=== PATIENT | female | born 1980 | race Caucasian/White ===

== ENCOUNTER → 2020-04-23 16:22 | Outpatient (CLI) | payer BC, SELFPAY ==
[2020-04-23 12:58] VITALS: BMI 30.7
== END ==
PROVIDERS: Visit Provider Nurse Practitioner Women's Health
DX: N76.1 Subacute and chronic vaginitis (principal)
CPT/HCPCS: 87070; 87205

== ENCOUNTER → 2020-06-15 08:13 | Outpatient (CLI) | payer BC, SELFPAY ==
[2020-04-23 12:58] VITALS: BMI 30.7
--- NOTE | 2020-06-15 08:22 | BI_ITS ---
MAMMOGRAPHY - BILATERAL SCREENING REASON FOR EXAM: Female, 40 years old. Routine annual screening examination. PERTINENT HISTORY: Non-contributory. TECHNIQUE: Digital bilateral breast darwin (3D mammographic acquisition) in the CC and MLO projections. 2-D mediolateral oblique (MLO) and craniocaudad (CC) views of both breasts were obtained. CAD: Full Field Digital Mammography with Computer Added Detection was performed. COMPARISON: Comparison is made with prior outside examination dated 05/02/2019. FINDINGS: Breast Composition: The breasts are heterogeneously dense, which may obscure small masses. There are no dominant masses or suspicious calcifications. Stable benign-appearing bilateral axillary. No other significant abnormalities are identified. There has been no significant change since the prior study. BI/SCRN MAMM (CAD)W/DARWIN BILAT IMPRESSION: Stable bilateral screening mammogram. Yearly follow-up mammogram recommended. (A) ASSESSMENT CATEGORY: BIRADS Category 2: Benign. A letter regarding these results will be sent to the patient by the facility within 30 days. Approximately 10% of breast cancers are not detected by mammography. A normal mammogram should not delay biopsy of a clinically suspicious abnormality. [id number] Electronically Signed: Hi Navarro MD at 14:12 EDT , Service support ,
== END ==
PROVIDERS: Referring Provider Nurse Practitioner Women's Health; Visit Provider Nurse Practitioner Women's Health
DX: Z12.31 Encounter for screening mammogram for malignant neoplasm of breast (principal)
CPT/HCPCS: 77063; 77067

== ENCOUNTER → 2021-01-16 12:19 | Outpatient (CLI) | payer BC, SELFPAY ==
[2021-01-18 15:59] LABS: HPV APTIMA, High Risk Negative (Negative)
== END ==
PROVIDERS: Referring Provider Nurse Practitioner Women's Health; Visit Provider Nurse Practitioner Women's Health
DX: N76.0 Acute vaginitis (principal)
CPT/HCPCS: 87070; 87205; 87624; 88175; G0145

== ENCOUNTER 2021-04-17 09:24 | Outpatient (CLI) | payer BC, SELFPAY ==
[2021-04-17 12:10] LABS: Absolute Lymphocyte Count 1.65 X10^3/uL (0.83-4.51); Absolute Neutrophil Count 5.2 X10^3/uL (2.0-7.7); Basophil# 0.04 X10^3/uL; Basophil% 0.5 % (0-1); Eosinophil# 0.13 X10^3/uL; Eosinophils% 1.7 % (0-5); Hematocrit 43.6 % (37-47); Hemoglobin 14.5 g/dL (12.0-15.0); Lymphocyte # 1.65 X10^3/ul (0.83-4.51); Lymphocyte % 21.5 % (19-41); Mean Corp Hgb Conc 33.3 g/dL (32-36); Mean Corpuscular Hgb 29.2 pg (27.0-32.0); Mean Corpuscular Volume 87.9 fL (81-99); Mean Platelet Vol. 12.5 fl (6.2-12.0); Monocyte# 0.63 X10^3/uL; Monocyte% 8.2 % (0-10); NRBC Flagged by Analyzer 0 % (0-5); Neutrophil # 5.18 X10^3/uL (2.7-7.7); Neutrophil % 67.7 % (47-70); Platelet Count 286 K/mm3 (150-450); RBC Distribution Width SD 42.1 fl (35.1-43.9); Red Blood Count 4.96 M/mm3 (4.2-5.4); White Blood Count 7.7 K/mm3 (4.4-11.0)
[2021-04-17 12:28] LABS: ALB/GLOB Ratio 1.1 RATIO (0.9-2.4); AST(SGOT) 15 U/L (15-37); Alanine Aminotransfer ALT/SGPT 35 U/L (13-56); Alkaline Phosphatase 49 U/L (45-117); Anion Gap 7 (5-15); BUN 15 mg/dL (7-18); Calcium,Total 9.2 mg/dL (8.5-10.1); Chloride 107 mmol/L (98-107); Cholesterol 210 mg/dL (200); Creatinine, Serum 0.88 mg/dL (0.55-1.02); EST Glomerular Filtration Rate 75 mL/min (>60); Est Glom Filt Rate - Afr Amer 91 mL/min (>60); Globulin 3.8 g/dL (2.2-4.2); Glucose 92 mg/dL (74-106); High Density Lipoprotein 45 mg/dL; Potassium 4.5 mmol/L (3.5-5.1); Protein, Total 7.8 g/dL (6.4-8.2); Sodium Level 139 mmol/L (136-145); Triglycerides 163 mg/dL; Very Low Density Lipoprotein 33 mg/dL (5-40)
== END 2021-04-17 23:59 | disposition short-term general hospital (02) ==
LOC: BIMLAB 09:24
PROVIDERS: PCP Internal Medicine; Referring Provider Internal Medicine; Visit Provider Internal Medicine
DX: Z00.00 Encounter for general adult medical examination without abnormal findings (principal)
CPT/HCPCS: 36415; 80053; 80061; 85025

== ENCOUNTER 2021-04-19 10:52 | Outpatient (CLI) | payer BC, SELFPAY ==
[2021-04-29 19:06] LABS: Angiotensin Convert Enzyme 23 U/L (14-82); QNTFERON TB Mitogen Value > 10.00 IU/mL (.); QNTFERON TB Nil Value 0 IU/mL (.); QNTFERON TB1+ Ag Value 0 IU/mL (.); QNTFERON TB2+ Ag Value 0 IU/mL (.)
[2021-04-29 20:24] LABS: HLA B27 Positive (.); QNTIFERON TB Positive Criteria Negative (Negative); Treponema palladium Ab (FTA) Non Reactive (Non Reactive)
== END 2021-04-19 23:59 | disposition short-term general hospital (02) ==
LOC: BIMLAB 10:53
PROVIDERS: PCP Internal Medicine; Referring Provider Ophthalmology; Visit Provider Ophthalmology
DX: H20.012 Primary iridocyclitis, left eye (principal)
CPT/HCPCS: 36415; 81374; 82164; 86480; 86780

== ENCOUNTER → 2021-08-02 | Outpatient (CLI) | payer BC, SELFPAY ==
--- NOTE | 2021-08-02 10:53 | BI_ITS ---
MAMMOGRAPHY - BILATERAL SCREENING REASON FOR EXAM: Female, 41 years old. Routine annual screening examination. PERTINENT HISTORY: Non-contributory. TECHNIQUE: Digital bilateral breast darwin (3D mammographic acquisition) in the CC and MLO projections. 2-D mediolateral oblique (MLO) and craniocaudad (CC) views of both breasts were obtained. CAD: Full Field Digital Mammography with Computer Added Detection was performed. COMPARISON: Comparison is made with prior study 06/15/2020. FINDINGS: Breast Composition: The breasts are heterogeneously dense, which may obscure small masses. There are no dominant masses or suspicious calcifications. Stable small benign-appearing lateral axillary lymph nodes. No other significant abnormalities are identified. There has been no significant change since the prior study. BI/SCRN MAMM (CAD)W/DARWIN BILAT IMPRESSION: Stable bilateral screening mammogram. Yearly follow-up mammogram recommended. (A) ASSESSMENT CATEGORY: BIRADS Category 2: Benign. A letter regarding these results will be sent to the patient by the facility within 30 days. Approximately 10% of breast cancers are not detected by mammography. A normal mammogram should not delay biopsy of a clinically suspicious abnormality. [id number] Electronically Signed: Hi Navarro MD at 11:55 EDT ,
== END | disposition home or self-care (01) ==
LOC: OPBI 10:52
PROVIDERS: PCP Internal Medicine; Referring Provider Nurse Practitioner Women's Health; Visit Provider Nurse Practitioner Women's Health
DX: Z12.31 Encounter for screening mammogram for malignant neoplasm of breast (principal)
CPT/HCPCS: 77063; 77067

== ENCOUNTER → 2022-10-03 | Outpatient (CLI) | payer BC, SELFPAY ==
--- NOTE | 2022-10-03 12:44 | BI_ITS ---
MAMMOGRAPHY - BILATERAL SCREENING REASON FOR EXAM: Female, 42 years old. Routine annual screening examination. PERTINENT HISTORY: Non-contributory. TECHNIQUE: Digital bilateral breast darwin (3D mammographic acquisition) in the CC and MLO projections. 2-D mediolateral oblique (MLO) and craniocaudad (CC) views of both breasts were obtained. CAD: Full Field Digital Mammography with Computer Added Detection was performed. COMPARISON: Comparison is made with prior study dated August 02, 2021 and June 15, 2020. FINDINGS: Breast Composition: The breasts are heterogeneously dense, which may obscure small masses. There is a 1.5 cm x 1.1 cm well-defined nodule in the inferior central portion of the right breast. Correlation with ultrasound is recommended. Stable small lateral axillary lymph nodes. No other significant abnormalities are identified. BI/SCRN MAMM (CAD)W/DARWIN BILAT IMPRESSION: New 1.5 cm x 1.1 cm well-defined nodule in the inferior central portion of the right breast. Correlation with ultrasound is recommended. ASSESSMENT CATEGORY: BIRADS Category 0: Incomplete. Need additional imaging evaluation. A letter regarding these results will be sent to the patient by the facility within 30 days. Approximately 10% of breast cancers are not detected by mammography. A normal mammogram should not delay biopsy of a clinically suspicious abnormality. [id number] Electronically Signed: Hi Navarro MD at 14:03 EDT ,
== END | disposition home or self-care (01) ==
PROVIDERS: PCP Internal Medicine; Referring Provider Nurse Practitioner Women's Health; Visit Provider Nurse Practitioner Women's Health
DX: Z12.31 Encounter for screening mammogram for malignant neoplasm of breast (principal)
CPT/HCPCS: 77063; 77067

== ENCOUNTER → 2022-10-15 | Outpatient (CLI) | payer BC, SELFPAY ==
--- NOTE | 2022-10-15 11:00 | US_ITS ---
STUDY: ULTRASOUND BREAST - RIGHT REASON FOR EXAM: Female, 42 years old. Abnormal screening mammogram. TECHNIQUE: Axial and longitudinal images of the RIGHT breast were performed with a high resolution ultrasound transducer. # OF IMAGES: 24 COMPARISON: Comparison is made with prior mammogram dated October 03, 2022. FINDINGS: RIGHT Breast: The mammographic abnormality corresponds to a 1 cm x 0.9 cm x 0.8 cm slightly lobulated hypoechoic solid nodule at the 7:00 position of the breast at 3 cm from the nipple. Biopsy is recommended. US/Breast Limited Unilateral IMPRESSION: 1 cm x 0.9 cm x 0.8 cm slightly lobulated hypoechoic solid nodule at the 7:00 position of the breast 3 cm from the nipple. Biopsy is recommended. ASSESSMENT CATEGORY: BIRADS Category 4: Suspicious - Biopsy Should Be Considered. A letter regarding these results will be sent to the patient by the facility within 30 days. Electronically Signed: Hi Navarro MD at 15:02 EDT ,
== END | disposition home or self-care (01) ==
LOC: OPUS 10:58
PROVIDERS: PCP Internal Medicine; Referring Provider Nurse Practitioner Women's Health; Visit Provider Nurse Practitioner Women's Health
DX: R92.8 Other abnormal and inconclusive findings on diagnostic imaging of breast (principal)
CPT/HCPCS: 76642

== ENCOUNTER 2022-10-28 05:50 | Day surgery (SDC) | payer BC, SELFPAY ==
--- NOTE | 2022-10-28 | BRBX_PTH ---
PATIENT: KARIS MILTON LOC: [facility] U#:[id number] AGE/SX: 42/F ROOM: RE10/28/[address]: Dr. Doron Pozo MD : 1980 BED: DIS: 10/28/2022 SPEC #: [id number] RECD: 10/28/22 10:40 STATUS: TRACY BATRES #: [id number] TIFFANY: 10/28/22 00:[address]: Doron Pozo DEPT: SURGICAL PATHOLOGY RECD BY: Ephraim Bush ENTERED: 10/28/22 10:41 SP TYPE: BREAST BX OTHR DR: Dr. Monica Chopra MD Tissues: Right breast, NOS Procedures: Surgery Specimen Level V HEADER OPERATION: Breast biopsy needle localization PRE-OP DIAGNOSIS: Right breast mass, abnormal mammogram TISSUE SUBMITTED: Right breast tissue, tag short - superior, long - lateral MICROSCOPIC DIAGNOSIS Right breast, lumpectomy: Fibroadenoma. Intraductal hyperplasia without atypia. Fibrocystic change. See comment. AM:shakeel 10/30/2022 COMMENT The lesion extends focally to the anterior margin of excision. Case has been reviewed in consultation with Dr. Mckeon who concurs with the above diagnosis. IDC:SJ MICROSCOPIC DESCRIPTION Slides are reviewed. GROSS DESCRIPTION Received in fixative is one container labeled with the patient's name and designated right breast tissue. The specimen consists of a piece of fibroadipose tissue measuring 3.0 x 2.5 x 2.0 cm. A wire is present free in the container. The specimen is oriented as follows: short - superior, long - lateral. The specimen appears to be partly disrupted exposing a nodule. The specimen is inked as follows: anterior - yellow, posterior - black, superior - blue, inferior - green, medial - red and lateral - orange. Sections reveal a nodule measuring 1.2 x 1.2 x 1.5 cm. The nodule is close to the anterior margin and lateral margin of the disrupted specimen. A few detached fragments of adipose tissue are also noted in the container. The entire specimen is submitted in six cassettes. Cassettes 2 & 3 contain the nodule / SJ:rg 10/29/2022 TC:1 CPT: 98884
[2022-10-28] MEDS: Lactated Ringers 1,000 ML 15 ML IV (06:10)
[2022-10-28 06:19] VITALS: BP 167/99; PULSE 93; RESP 18; TEMP 36.6; O2SAT 99; BMI 31.8
[2022-10-28] MEDS: Cefazolin 2 GM in 0.9% Normal Saline 100 ML IV (07:29)
--- NOTE | 2022-10-28 07:33 | PCM.HP.BLA ---
History and Physical Date of Admission: 10/28/22 Date of Service: 10/21/22 MR#: [id number] Acct: [id number] Name: KARIS CHÁVEZ Rep #: [id number] : 1980 Provider: Dr. Doron Pozo MD Age/Sex: 42/F Location: [facility] Status: Signed Intake Vital Signs 06/26/2312:16 10/21/2314:07 Height 5 ft 3 in 5 ft 3 in BP 175/109 H Blood Pressure Location Rt brachial Position Sitting Respiration 17 Pulse Source Monitor Temp 97.4 F L Temp Source Tympanic Intake Visit Reasons: R BREAST BIRADS 4 Chief Complaint: R BREAST BRADS 4 Allergies No Known Allergies Allergy (Unverified 10/21/22 15:08) Medications multivitamin 1 tab PO DAILY 04/23/20 [History Confirmed 10/21/22] prednisolone acetate 1 % eye drops,suspension 1 drp ophthalmic (eye) Q6H 04/17/21 [History Confirmed 10/21/22] PFSH Medical History History of uveitis Surgical History H/O tubal ligation S/P Family History Mother Hypertension Social History household members: spouse and children number of children: 2 current occupational status: employed current occupation: [employer] history of recent travel: No sexually active: Yes Smoking Status: Former smoker alcohol intake: current alcohol intake frequency: a few times a week substance use type: does not use what type of physical activity do you participate in: walking and running seatbelt use: always do you feel safe at home: Yes additional social history: - Joey HPI HPI HPI: Patient is a 42-year-old female who presents for mammographic finding confirmed by ultrasound of the right breast. They are referred from Ms. Sruthi Sun NP. Based on sonographic imaging criteria this was given a BI-RADS 4 and measures 1.0 x 0.9 x 0.8cm. The mass was first found by screening mammography and has not been felt on exam. Patient has no prior history of breast pathology. She therefore has no history of prior breast biopsy. She underwent menarche at the age of 12. She has had 2 pregnancies and 2 live births. Breast-feeding was used (patient estimates 6 to 8 months 3 child). Patient has no first-degree relatives with breast cancer. There is no tenderness with the present finding. There is no nipple discharge associated with this finding. The patient has no history of hormone replacement therapy. There is no history of trauma/infection to the affected breast. ROS General General: No weight change, appetite, fatigue, colon cancer, breast cancer or weakness HEENT HEENT: No difficulty swallowing, eye injury, eye surgery, swollen glands or hoarseness Endo Endocrine: No thyroid disease, diabetes mellitus, thyroid cancer, Hair loss, heat intolerance or cold intolerance Skin Skin: No rash or changing moles Breast Breast: No left breast lump, right breast lump, nipple discharge, breast pain, abnormal mammogram, abnormal US or breast enlargement Musc Musculoskeletal: No back problems, arthritis, rheumatoid arthritis, gout or joint pain Cardio Cardiovascular: No murmur, pacemaker, heart disease, atrial fibrillation, high blood pressure, heart attack, heart stent, palpitations, shortness of breat with exertion or chest pain Psych Psychiatric: No depression, anxiety or hearing voices Resp Respiratory: No shortness of breath, No sleep apnea, No cough, No COPD, No asthma, No emphysema and No wheezing Gastro Gastrointestinal: No abdominal pain, No nausea or vomiting, No diarrhea, No constipation, No blood in stool, No acid reflux, No hemorrhoids, No ulcers, No gallbladder problem and No black,tarry stools Omega Hematologic: No blood thinners, No blood disorders, No bleeding, No anemia and No blood clots Neuro Neurologic: No system reviewed and no additional complaints, except as documented, No as per HPI, No abnormal gait, No abnormal hearing, No abnormal movements, No abnormal speech, No behavioral changes, No burning sensations, No confusion, No convulsions, No disequilibrium, No dizziness, No localized weakness, No frequent falls, No headache(s), No lack of coordination, No loss of vision, No memory loss, No numbness, No other visual disturbances, No radicular pain, No restless legs, No sensory deficit, No syncope, No tingling, No tremor(s), No weakness and No other Exam Const General: cooperative and anxious Orientation: alert, awake and oriented x3 Chest Other: Bilateral breast exam performed. There is no nipple ptosis. Lobular breast tissue appreciated. Right breast was somewhat more dense breast tissue than left breast. Subtly discernible nodule at the 7 o'clock position 3 cm from the nipple on the right. Bilateral axillary contents unremarkable. Bilateral supraclavicular fossae unremarkable. Well-circumscribed hypoechoic lesion located between 0.5 and 1.5 cm from the surface at the 7 o'clock position 3 cm from the nipple Assessment and Plan Assessment and Plan (1) Mass of lower outer quadrant of right breast: Status: Acute Comment: This is a 42-year-old female with average risk for breast cancer who presents with an incidental finding on screening mammogram in the right breast. Follow-up ultrasound confirms this to be a 1 cm hypoechoic lesion graded a BI-RADS 4 by radiology. It is not easily palpated on exam, but is clearly seen with ultrasound. I have shared with Mrs. Chávez that this does have a benign appearance from what can be seen with ultrasound. Patient was provided options for core needle biopsy versus excisional biopsy and has selected the latter. Procedure was described in detail and patient has no further questions. Plan: Excisional right breast biopsy via ultrasound-guided needle localization under MAC. To be scheduled I have examined the patient and the H&P has been reviewed. There are no clinical changes since date of exam. Post procedure wound care expectations were reviewed with patient. Neither she nor her spouse have any further questions. Proceed to the operating room for planned excisional biopsy of right breast mass as discussed above.
[2022-10-28] MEDS: Bupivacaine Mpf 0.5% 30 ML VIAL (08:02)
--- NOTE | 2022-10-28 08:32 | BI_ITS ---
SURGICAL BREAST SPECIMEN RADIOGRAPH CLINICAL: Document presence of mass in biopsy specimen. FINDINGS: Specimen shows presence of mass. Electronically Signed: Hi Navarro MD at 9:21 EDT , BI/Breast Biopsy Specimen IMPRESSION: undefined
--- NOTE | 2022-10-28 08:48 | PCM.OPRPT ---
Report of Operation Date of Procedure: 10/28/22 Pre-Operative Diagnosis: Right breast mass Post-Operative Diagnosis: Same Surgery/Procedure Performed:: Wire localized excisional breast biopsy Description of Surgical Findings:: ? Well-circumscribed, pink?peach colored nodule approximately 1 cm in diameter Surgeon: Doron Pozo Type of Anesthesia: General/Supplemental Anesthesiologist: Vinay Marr Specimen's removed: right breast mass Estimated Blood Loss (mL): 5 Description of Procedure: After appropriate identification in the preoperative holding area, the patient was brought to the operating room where her preoperative antibiotics were completed. She was positioned supine on the operating room table with her arms out and underwent induction with anesthesia. An LMA airway was placed. An ultrasound machine was used to localize patient's breast mass and then a Kopan's needle was used to define the depth of the mass through wire localization. The area was then prepped and draped in usual sterile fashion. Formal timeout was conducted to confirm both patient and procedure. Local anesthetic was instilled in the appointed location for the incision and an approximately 2.5cm longitudinal incision was made over the nodular area. This was deepened with the use of electrocautery through the dermis. Then the mass was dissected free of the surrounding breast tissue with a combination of blunt dissection and electrocautery. The area of interest was grasped with our Allis clamps to try to stabilize the position of the wire, but still during this dissection process the wire was displaced. Fortunately, the mass was easily palpable and visible at this point in the dissection and I simply continued to take a margin around it and deeply. The mass was then completely excised from the cavity and orientation maintained until we were able to place orientation marking stitches designating short superior long lateral with a 3-0 Vicryl suture. The surgical cavity was inspected for hemostasis and selective electrocautery was used on an area of slight oozing. The cavity was irrigated with sterile water and all loose breast tissue was removed from the cavity. The deep margin was marked with 3 medium sized vascular clips. Cavity was then closed at a deep dermal level with a running 3-0 Vicryl. Then the skin was closed in a subcuticular fashion with 4-0 Monocryl. Dermabond was applied as a dressing. Patient was then taken to PACU for ongoing recovery. Total local anesthetic 15 mL Grafts/Implants Used: NA Complications None Admit VTE Documentation VTE Mechan Device Prophylaxis: SCD's
--- NOTE | 2022-10-28 08:54 | DCINST_ITS ---
Discharge Instructions Diet Discharge Diet: No restrictions Activity Discharge Activity: May Drive (No driving while using narcotic pain medication) and May Shower Ice area for (Minutes): 20 Lifting Restrictions: Limit lifting & overhead R upper extremity to no more than 5 pounds x2 days Dressing / Incision Call your doctor if your incision/area has: Continuous Slow Oozing, Sudden Increased Bleeding, Increased Pain/ Swelling, Increased Redness, Foul Smelling Discharge and Swelling at the incision site Call your doctor if you observe: Fever of 101 or Higher Suture Line Care: Avoid Pulling/Pushing Cleanse incision/area with: Soap & Water Follow Up Care Please Follow Up With: Doron Pozo MD When: 7 days postop Test Results: Test results from this visit will be discussed in further detail at your follow- up appointment, if applicable. Discharge Plan Admission Primary Reason for Your Visit: excisional biopsy of R breast mass Attending Provider: Doron Pozo Primary Care Provider: Monica Chopra Discharge Orders/Prescriptions Prescriptions: Continued multivitamin Tablet 1 tab PO DAILY prednisolone acetate 1 % drops,suspension 1 drp ophthalmic (eye) Q6H Referrals / Follow Up: Monica Chopra MD [Primary Care Provider] - Disposition Disposition (needs filled in before D/C Order can be placed): Home, Self Care
[2022-10-28 08:57] VITALS: BP 133/83; BP 167/99; PULSE 98; RESP 16; TEMP 36.9; O2SAT 99
[2022-10-28 09:00] VITALS: BP 132/84; BP 167/99; PULSE 100; RESP 16; O2SAT 99
[2022-10-28 09:11] VITALS: BP 131/78; BP 167/99; PULSE 97; RESP 16; TEMP 36.5; O2SAT 99
[2022-10-28 09:53] VITALS: BP 139/91; BP 167/99; PULSE 108; RESP 16; TEMP 36.5; O2SAT 98
== END 2022-10-28 09:56 | disposition home or self-care (01) ==
LOC: SDC 05:50 → AC 05:52
PROVIDERS: PCP Internal Medicine; Referring Provider Surgery; Visit Provider Surgery
PROC: (CPT 19285; principal; 2022-10-28 07:15)
DX: D24.1 Benign neoplasm of right breast (principal); Z87.891 Personal history of nicotine dependence
CPT/HCPCS: 19285; 00400; 76098; 88305; 88307; A4648; J7120; J2405

== ENCOUNTER → 2023-08-05 | Outpatient (CLI) | payer BC, SELFPAY ==
[2023-08-05 16:39] LABS: Absolute Lymphocyte Count 1.61 X10^3/uL (0.83-4.51); Absolute Neutrophil Count 3.9 X10^3/uL (2.0-7.7); Basophil# 0.04 X10^3/uL; Basophil% 0.7 % (0-1); Eosinophil# 0.11 X10^3/uL; Eosinophils% 1.8 % (0-5); Hematocrit 41.9 % (37-47); Hemoglobin 13.5 g/dL (12.0-15.0); Lymphocyte # 1.61 X10^3/ul (0.83-4.51); Lymphocyte % 26.3 % (19-41); Mean Corp Hgb Conc 32.2 g/dL (32-36); Mean Corpuscular Hgb 27.9 pg (27.0-32.0); Mean Corpuscular Volume 86.6 fL (81-99); Mean Platelet Vol. 12.5 fl (6.2-12.0); Monocyte# 0.48 X10^3/uL; Monocyte% 7.8 % (0-10); NRBC Flagged by Analyzer 0 % (0-5); Neutrophil # 3.87 X10^3/uL (2.7-7.7); Neutrophil % 63.1 % (47-70); Platelet Count 283 K/mm3 (150-450); RBC Distribution Width CV 12.9 % (11.6-14.6); RBC Distribution Width SD 40.5 fl (35.1-43.9); Red Blood Count 4.84 M/mm3 (4.2-5.4); White Blood Count 6.1 K/mm3 (4.4-11.0)
[2023-08-05 16:52] LABS: ALB/GLOB Ratio 1.2 RATIO (0.9-2.4); AST(SGOT) 18 U/L (15-37); Alanine Aminotransfer ALT/SGPT 29 U/L (13-56); Albumin, Serum 4.2 g/dL (3.2-5.0); Alkaline Phosphatase 50 U/L (45-117); Anion Gap 4 (5-15); BUN 10 mg/dL (7-18); BUN/Creat Ratio 11.7 RATIO (10-20); Calcium,Total 8.9 mg/dL (8.5-10.1); Chloride 109 mmol/L (98-107); Cholesterol 223 mg/dL (200); Creatinine, Serum 0.85 mg/dL (0.55-1.02); EST Glomerular Filtration Rate 77 mL/min (>60); Est Glom Filt Rate - Afr Amer 93 mL/min (>60); Globulin 3.5 g/dL (2.2-4.2); Glucose 87 mg/dL (74-106); High Density Lipoprotein 45 mg/dL; Potassium 3.9 mmol/L (3.5-5.1); Protein, Total 7.7 g/dL (6.4-8.2); Sodium Level 140 mmol/L (136-145); Triglycerides 190 mg/dL; Very Low Density Lipoprotein 38 mg/dL (5-40)
== END | disposition home or self-care (01) ==
LOC: BIMLAB 14:55
PROVIDERS: PCP Internal Medicine; Visit Provider Internal Medicine
DX: Z00.00 Encounter for general adult medical examination without abnormal findings (principal)
CPT/HCPCS: 36415; 80053; 80061; 85025

== ENCOUNTER → 2023-10-16 | Outpatient (CLI) | payer BC, SELFPAY ==
--- NOTE | 2023-10-16 12:41 | BI_ITS ---
MAMMOGRAPHY - BILATERAL SCREENING REASON FOR EXAM: Female, 43 years old. Routine annual screening examination. PERTINENT HISTORY: Non-contributory. History of prior right excisional breast biopsy. Fibroadenoma. TECHNIQUE: Digital bilateral breast darwin (3D mammographic acquisition) in the CC and MLO projections. 2-D mediolateral oblique (MLO) and craniocaudad (CC) views of both breasts were obtained. CAD: Full Field Digital Mammography with Computer Added Detection was performed. COMPARISON: Comparison is made with prior study dated October 03, 2022 and August 02, 2021. FINDINGS: Breast Composition: The breasts are heterogeneously dense, which may obscure small masses. The patient is status post excisional biopsy of the nodular density in the inferior central portion of the right breast. Postoperative scarring is seen. Stable small benign-appearing bilateral axillary lymph nodes. No other significant abnormalities are identified. BI/SCRN MAMM (CAD)W/DARWIN BILAT IMPRESSION: Stable bilateral screening mammogram. Yearly follow-up mammogram recommended. (A) ASSESSMENT CATEGORY: BIRADS Category 2: Benign. A letter regarding these results will be sent to the patient by the facility within 30 days. Approximately 10% of breast cancers are not detected by mammography. A normal mammogram should not delay biopsy of a clinically suspicious abnormality. [id number] Electronically Signed: Hi Navarro MD at 14:20 EDT ,
== END | disposition home or self-care (01) ==
LOC: OPBI 12:40
PROVIDERS: PCP Internal Medicine; Referring Provider Nurse Practitioner Women's Health; Visit Provider Nurse Practitioner Women's Health
DX: Z12.31 Encounter for screening mammogram for malignant neoplasm of breast (principal)
CPT/HCPCS: 77063; 77067

== ENCOUNTER → 2024-05-11 | Outpatient (CLI) | payer BC, SELFPAY ==
[2024-05-11 12:32] LABS: Absolute Lymphocyte Count 1.82 X10^3/uL (0.83-4.51); Basophil# 0.04 X10^3/uL; Basophil% 0.5 % (0-1); Eosinophils% 1.3 % (0-5); Hematocrit 43.8 % (37-47); Hemoglobin 13.9 g/dL (12.0-15.0); Lymphocyte # 1.82 X10^3/ul (0.83-4.51); Lymphocyte % 23.6 % (19-41); Mean Corp Hgb Conc 31.7 g/dL (32-36); Mean Corpuscular Hgb 27.5 pg (27.0-32.0); Mean Corpuscular Volume 86.7 fL (81-99); Mean Platelet Vol. 11.9 fl (6.2-12.0); Monocyte# 0.72 X10^3/uL; Monocyte% 9.4 % (0-10); NRBC Flagged by Analyzer 0 % (0-5); Neutrophil # 4.98 X10^3/uL (2.7-7.7); Neutrophil % 64.7 % (47-70); Platelet Count 340 K/mm3 (150-450); RBC Distribution Width CV 12.9 % (11.6-14.6); RBC Distribution Width SD 40.3 fl (35.1-43.9); Red Blood Count 5.05 M/mm3 (4.2-5.4); White Blood Count 7.7 K/mm3 (4.4-11.0)
[2024-05-11 12:57] LABS: ALB/GLOB Ratio 1.1 RATIO (0.9-2.4); AST(SGOT) 15 U/L (15-37); Alanine Aminotransfer ALT/SGPT 27 U/L (13-56); Albumin, Serum 3.9 g/dL (3.2-5.0); Alkaline Phosphatase 54 U/L (45-117); Anion Gap 7 (5-15); BUN 14 mg/dL (7-18); BUN/Creat Ratio 16.5 RATIO (10-20); Calcium,Total 9.4 mg/dL (8.5-10.1); Chloride 109 mmol/L (98-107); Cholesterol 206 mg/dL (200); Creatinine, Serum 0.85 mg/dL (0.55-1.02); EST Glomerular Filtration Rate 77 mL/min (>60); Est Glom Filt Rate - Afr Amer 93 mL/min (>60); Globulin 3.7 g/dL (2.2-4.2); Glucose 89 mg/dL (74-106); High Density Lipoprotein 47 mg/dL; Potassium 4.6 mmol/L (3.5-5.1); Protein, Total 7.6 g/dL (6.4-8.2); Sodium Level 140 mmol/L (136-145); T4 Free Direct 0.94 ng/dL (0.76-1.46); Triglycerides 137 mg/dL; Very Low Density Lipoprotein 27 mg/dL (5-40)
== END | disposition home or self-care (01) ==
LOC: BIMLAB 10:25
PROVIDERS: PCP Internal Medicine; Referring Provider Internal Medicine; Visit Provider Internal Medicine
DX: R00.2 Palpitations (principal); E78.5 Hyperlipidemia, unspecified
CPT/HCPCS: 36415; 80053; 80061; 84439; 84443; 85025

== ENCOUNTER → 2024-05-17 | Outpatient (CLI) | payer BC, SELFPAY ==
--- NOTE | 2024-05-17 12:05 | EKG12_ITS ---
Test Reason : PALPITATIONS Blood Pressure : */* mmHG Vent. Rate : 89 BPM Atrial Rate : 89 BPM P-R Int : 118 ms QRS Dur : 66 ms QT Int : 346 ms P-R-T Axes : 59 -10 30 degrees QTcB Int : 420 ms Normal sinus rhythm Possible Left atrial enlargement Borderline ECG Confirmed by Doron Lockhart ([id number]), industrial editor WILMER LOVE ([id number]) on 05/18/2024 6:56:19 AM Referred By: Monica Chopra Confirmed By: Doron Lockhart
== END | disposition home or self-care (01) ==
LOC: PSN 12:04
PROVIDERS: PCP Internal Medicine; Referring Provider Internal Medicine; Visit Provider Internal Medicine
DX: R00.2 Palpitations (principal)
CPT/HCPCS: 93005

== ENCOUNTER → 2024-10-21 | Outpatient (CLI) | payer BC, SELFPAY ==
--- NOTE | 2024-10-21 13:05 | BI_ITS ---
EXAM: SCRN MAMM (CAD)W/DARWIN BILAT DATE: 10/21/2024 CLINICAL HISTORY: F, Age 44 y/o , SCREENING FOR BREAST CANCER TECHNIQUE: SCRN MAMM (CAD)W/DARWIN BILAT COMPARISON: Prior exam(s) dated 10/16/2023, 10/03/2022. FINDINGS: TISSUE DENSITY: There are scattered areas of fibroglandular density. Bilateral Breast Mammographic Findings: No significant masses, calcifications or other abnormalities are identified. BI/SCRN MAMM (CAD)W/DARWIN BILAT IMPRESSION: There is no mammographic evidence of malignancy. OVERALL FINAL ASSESSMENT BI-RADS 1: NEGATIVE. RECOMMENDATION: Routine annual follow-up in 1 Year A letter with findings and recommendations will be mailed to the patient. Reading Location: [id number]
== END | disposition home or self-care (01) ==
LOC: OPBI 13:03
PROVIDERS: PCP Internal Medicine; Referring Provider Nurse Practitioner Women's Health; Visit Provider Nurse Practitioner Women's Health
DX: Z12.31 Encounter for screening mammogram for malignant neoplasm of breast (principal)
CPT/HCPCS: 77063; 77067

== ENCOUNTER 2024-11-18 08:04 | Day surgery (SDC) | payer BC, SELFPAY ==
--- NOTE | 2024-11-17 15:15 | PAT.ANE_ITS ---
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 When Was Last Pacemaker Check QUESTION #4 FULL TEXT: You/Your Family Experience fever (hyperthermia) with Anesthesia Last Oral Intake Last Oral intake: Last Oral Intake NPO since Meds taken in AM with sips of water? Meds patient instructed to take am of surgery PONV PONV - gunite nozzle operator: PONV - gunite nozzle operator Female Yes 11/17/24 10:58 HX of Motion Sickness No 11/17/24 10:58 HX of N/V After Surgery No 11/17/24 10:58 Non-Smoker Yes 11/17/24 10:58 Duration of Surgery greater No 11/17/24 10:58 than 60 minutes Number of Risk Factors 2 11/17/24 10:58 PONV Score Moderate Risk 11/17/24 10:58 Height & Weight Height & Weight: Anesthesia: Height & Weight Height 5 ft 3 in 10/26/24 08:36 Respiratory Assessment Respiratory Assessment - gunite nozzle operator: Respiratory Tract Infection Hx - gunite nozzle operator Hx Respiratory Tract Infection No 11/17/24 10:58 STOP Sleep Apnea STOP Sleep Apnea - gunite nozzle operator: STOP Sleep Apnea - gunite nozzle operator Hx Hypertension No 11/17/24 10:58 Hx Sleep Apnea No 11/17/24 10:58 CPAP BIPAP Do you snore loudly (louder Yes 11/17/24 10:58 than talking or can be heard Do you often feel tired/ No 11/17/24 10:58 fatigued/ sleepy during daytime? Has anyone observed you stop No 11/17/24 10:58 breathing during sleep? STOP Results Negative 11/17/24 10:58 QUESTION #5 FULL TEXT : Do you snore loudly (louder than talking or can be heard through closed doors)? Tobacco Use History Tobacco Use History - gunite nozzle operator: Tobacco Use History - gunite nozzle operator Tobacco Use Smoking Status Never smoker 11/17/24 10:58 Hx Tobacco Use No 11/17/24 10:58 Years Smoking Packs Smoked per Day Smoking Cessation Date was within the last 15 years Hx Smoking Cessation Date Hx Smoking Cessation Counseling Hematologic Medial History Hematologic Hx - gunite nozzle operator: Hematologic Medical Hx - ophthalmologist Hx of Blood Transfusion No 11/17/24 10:58 Hx of Transfusion in last 3 No 11/17/24 10:58 Months Date of Last Transfusion (if within last 3 months) Ever experience any problems No 11/17/24 10:58 with transfusion(s)? Specify any problems Hx of Preganancy in last 3 No 11/17/24 10:58 Months Nurse Filling Out Transfusion DSCHRIBER 11/17/24 10:58 & Questions: Date: 11/17/24 11/17/24 10:58 Time: 10:59 11/17/24 10:58 Patient unable to answer at this time (ie. confused, unrespo /Reproduction History /Reproductive History - gunite nozzle operator: /Reproductive Hx- gunite nozzle operator Hx Now No 11/17/24 10:58 Gestational Age (in weeks): EDC: Hx Hx Para Hx Section SAB No 11/17/24 10:58 PFSH Medical History (Updated 11/17/24 @ 11:03 by Kavya Naidu) Alcohol use Shortness of breath on exertion Hx of breast lump Wears contact lenses Wears glasses Non-smoker History of echocardiogram History of uveitis Home Medications ?Medication ?Instructions ?Recorded ?Last Taken ?Type cholecalciferol (vitamin D3) 125 125 mcg PO QDAY 05/1111/14/24 History mcg (5,000 unit) capsule magnesium oxide 500 mg capsule 500 mg PO QDAY 05/11/24 11/14/24 History omega-3 fatty acids 500 mg PO DAILY 11/17/2402/28 History Allergy/AdvReac Type Severity Reaction Status Date / Time No Known Allergies Allergy Verified 11/17/24 10:57 Family History Mother Hypertension Surgical History (Updated 11/17/24 @ 11:03 by Kavya Naidu) Hx of colonoscopy H/O tubal ligation S/P Social History household members: spouse and children number of children: 2 current occupational status: employed current occupation: [employer] history of recent travel: No sexually active: Yes Smoking Status: Never smoker alcohol intake: current alcohol intake frequency: a few times a week substance use type: does not use caffeine: Yes (1-3) Type: coffee what type of physical activity do you participate in: walking frequency: 3-4 times per week seatbelt use: always do you feel safe at home: Yes additional social history: - Joey Audit: Pertinent Findings Pertinent Findings EKG Perinent findings: May 17, 2024. Normal sinus rhythm. Recommendation Anesthesia Recommendation Anesthesia recommendation: OPTIMIZED for anesthesia
[2024-11-18] MEDS: Lactated Ringers 1,000 ML 15 ML IV (08:20)
--- NOTE | 2024-11-18 08:20 | PCM.PRE.AN2 ---
ASA Classification* ASA Classification ASA Classification: 2 Assessment & Plan Anesthesia* Anesthesia Assessment Anesthesia Assessment: Discussed sedation and/or anesthesia options, risks, benefits, and alternatives with patient/parents/legal guardian/POA. Questions invited. The patient/parents/legal guardian/POA seems to understand and agrees to proceed with anesthesia plan. Reviewed the physical assessment, medical history, allergy history and patient home medications list prior to surgery/procedure/anesthetic and documented any changes. Performed airway and anesthesia risk assessments. Anesthesia Type Anesthesia Type: MAC History Source History Obtained from:: Patient and Chart Anesthesia Focused Assessment* Oxygen Delivery Method: Room Air Airway Assessment Mouth opens: >3 cm Mallampati Score: II Teeth Condition: Intact Neck Range of motion (ROM): Full ROM Labs Anesthesia Preop lab: CBC WBC 7.7 K/mm3 (4.4-11.0) 05/11/24 10:05/11/24 RBC 5.05 M/mm3 (4.2-5.4) 05/11/24 10:05/11/24 Hgb 13.9 g/dL (12.0-15.0) 05/11/24 10:05/11/24 Hct 43.8 % (37-47) 05/11/24 10:05/11/24 Plt Count 340 K/mm3 (150-450) 05/11/24 10:25 05/11/24 CHEMISTRY Potassium 4.6 mmol/L (3.5-5.1) 05/11/24 10:25 05/11/24 Sodium 140 mmol/L (136-145) 05/11/24 10:05/11/24 BUN 14 mg/dL (7-18) 05/11/24 10:05/11/24 Creatinine 0.85 mg/dL (0.55-1.02) 05/11/24 10:05/11/24 Glucose 89 mg/dL (74-106) 05/11/24 10:05/11/24 TSH 1.360 uIU/mL (0.358-3.740) 05/11/24 10:25 05/11/24 COAG Pre-Assessment Diagnosis/Proposed Procedure Planned Operative Procedure(s): CSCOPE OA Anesthesia History 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 When Was Last Pacemaker Check QUESTION #4 FULL TEXT: You/Your Family Experience fever (hyperthermia) with Anesthesia Last Oral Intake Last Oral intake: Last Oral Intake NPO since Meds taken in AM with sips of water? 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 - milk pickup driver Female Yes 11/17/24 10:58 HX of Motion Sickness No 11/17/24 10:58 HX of N/V After Surgery No 11/17/24 10:58 Non-Smoker Yes 11/17/24 10:58 Duration of Surgery greater No 11/17/24 10:58 than 60 minutes Number of Risk Factors 2 11/17/24 10:58 PONV Score Moderate Risk 11/17/24 10:58 Height & Weight Height & Weight: Anesthesia: Height & Weight Height 5 ft 3 in 10/26/24 08:36 Respiratory Assessment Respiratory Assessment - milk pickup driver: Respiratory Tract Infection Hx - milk pickup driver Hx Respiratory Tract Infection No 11/17/24 10:58 STOP Sleep Apnea STOP Sleep Apnea - milk pickup driver: STOP Sleep Apnea - milk pickup driver Hx Hypertension No 11/17/24 10:58 Hx Sleep Apnea No 11/17/24 10:58 CPAP BIPAP Do you snore loudly (louder Yes 11/17/24 10:58 than talking or can be heard Do you often feel tired/ No 11/17/24 10:58 fatigued/ sleepy during daytime? Has anyone observed you stop No 11/17/24 10:58 breathing during sleep? STOP Results Negative 11/17/24 10:58 QUESTION #5 FULL TEXT : Do you snore loudly (louder than talking or can be heard through closed doors)? Tobacco Use History Tobacco Use History - milk pickup driver: Tobacco Use History - milk pickup driver Tobacco Use Smoking Status Never smoker 11/17/24 10:58 Hx Tobacco Use No 11/17/24 10:58 Years Smoking Packs Smoked per Day Smoking Cessation Date was within the last 15 years Hx Smoking Cessation Date Hx Smoking Cessation Counseling Hematologic Medial History Hematologic Hx - milk pickup driver: Hematologic Medical Hx - document scanner Hx of Blood Transfusion No 11/17/24 10:58 Hx of Transfusion in last 3 No 11/17/24 10:58 Months Date of Last Transfusion (if within last 3 months) Ever experience any problems No 11/17/24 10:58 with transfusion(s)? Specify any problems Hx of Preganancy in last 3 No 11/17/24 10:58 Months Nurse Filling Out Transfusion DSCHRIBER 11/17/24 10:58 & Questions: Date: 11/17/24 11/17/24 10:58 Time: 10:59 11/17/24 10:58 Patient unable to answer at this time (ie. 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: /Reproductive Hx- milk pickup driver Hx Now No 11/17/24 10:58 Gestational Age (in weeks): EDC: Hx Hx Para Hx Section SAB No 11/17/24 10:58 Active Medications Active Medications: Current Medications Generic Name Dose Route Start Last Admin Trade Name Freq PRN Reason Stop Dose Admin Lactated Ringer's 1,000 mls @ 15 mls/hr 11/18/24 08:15 IV .Q48H [facility] Medical History (Updated 11/17/24 @ 11:03 by Kavya Naidu) Alcohol use Shortness of breath on exertion Hx of breast lump Wears contact lenses Wears glasses Non-smoker History of echocardiogram History of uveitis Home Medications ?Medication ?Instructions ?Recorded ?Last Taken ?Type cholecalciferol (vitamin D3) 125 125 mcg PO QDAY 05/11/24 11/14/24 History mcg (5,000 unit) capsule magnesium oxide 500 mg capsule 500 mg PO QDAY 05/11/24 11/14/24 History omega-3 fatty acids 500 mg PO DAILY 11/17/24 11/14/24 History Allergy/AdvReac Type Severity Reaction Status Date / Time No Known Allergies Allergy Verified 11/18/24 08:19 Family History Mother Hypertension Surgical History (Updated 11/17/24 @ 11:03 by Kavya Naidu) Hx of colonoscopy H/O tubal ligation S/P Social History household members: spouse and children number of children: 2 current occupational status: employed current occupation: [employer] history of recent travel: No sexually active: Yes Smoking Status: Never smoker alcohol intake: current alcohol intake frequency: a few times a week substance use type: does not use caffeine: Yes (1-3) Type: coffee what type of physical activity do you participate in: walking frequency: 3-4 times per week seatbelt use: always do you feel safe at home: Yes additional social history: - Joey Review of Systems (Anesthesia) ROS Narrative System reviewed and no additional complaints, except as documented.
[2024-11-18 08:21] VITALS: BP 169/103; PULSE 121; RESP 16; TEMP 37.4; O2SAT 100; BMI 33.3
--- NOTE | 2024-11-18 08:44 | H&P.OPEN ---
HPI - General HPI Narrative KARIS MILTON, is a 44 F who presents for screening colonoscopy. Her last colonoscopy was 12 years ago. She denies abdominal pain or blood in the stool. No family history of colon cancer. [facility] Medical History (Updated 11/18/24 @ 08:[address] Prosper Bacon MD) Alcohol use Shortness of breath on exertion Hx of breast lump Wears contact lenses Wears glasses Non-smoker History of echocardiogram History of uveitis Home Medications ?Medication ?Instructions ?Recorded ?Last Taken ?Type cholecalciferol (vitamin D3) 125 125 mcg PO QDAY 05/11/24 11/14/24 History mcg (5,000 unit) capsule magnesium oxide 500 mg capsule 500 mg PO QDAY 05/11/24 11/14/24 History omega-3 fatty acids 500 mg PO DAILY 11/17/24 11/14/24 History Allergy/AdvReac Type Severity Reaction Status Date / Time No Known Allergies Allergy Verified 11/18/24 08:19 Family History Mother Hypertension Surgical History (Updated 11/17/24 @ 11:03 by Kavya Naidu) Hx of colonoscopy H/O tubal ligation S/P Social History household members: spouse and children number of children: 2 current occupational status: employed current occupation: [employer] history of recent travel: No sexually active: Yes Smoking Status: Never smoker alcohol intake: current alcohol intake frequency: a few times a week substance use type: does not use caffeine: Yes (1-3) Type: coffee what type of physical activity do you participate in: walking frequency: 3-4 times per week seatbelt use: always do you feel safe at home: Yes additional social history: - Joey Past Medical/Surgical History Planned Operation Planned Operative Procedure(s): CSCOPE OA Previous Hospitalizations/Surgeries HX Hospitalizations: No Any Problems With Anesthesia: No You/Your Family Experience Fever (Hyperthermia) With Anes: No Cholinesterase deficiency: No Cardiovascular Hx Hypertension: No Respiratory Hx Sleep Apnea: No Hx Respiratory Tract Infection/Cold (presently): No Do You Snore Loudly (louder than talking or can be heard): Yes Do You Often Feel Tired/ Fatigued/ Sleepy Dring Daytime?: No Has Anyone Observed You Stop Breathing During Sleep?: No Result (for STOP score): Negative Smoking Status: Never smoker Neurological Does patient have nerve stimulator: No Reproduction : No Miscellaneous Recent Exposure to Contagious Disease: No Allergies No Known Allergies Allergy (Verified 11/18/24 08:19) Discharge Is Pt Admitted From a Longterm, or a Long Term: No After D/C, Where Do you Plan to Go: Return Home Vital Signs Vital Signs Vital Signs: 11/18/24 08:20 11/18/24 08:21 11/18/24 08:21 Temperature 99.3 F H Temperature Source Temporal Pulse Rate 121 H Respiratory Rate 16 Respiratory Pattern Normal Blood Pressure 169/103 H Blood Pressure Mean 125 Blood Pressure Source Monitor Blood Pressure Position Semi-Fowlers Blood Pressure Location Left Arm Pulse Ox 100 Oxygen Delivery Method Room Air Weight Weight: 188 lb 4.396 oz Body Mass Index (BMI) 33.3 Physical Exam Const alert and oriented x3 HEENT normocephalic Eyes PERRL Resp normal respiratory effort and normal air movement Cardio regular rate and regular rhythm GI soft to palpation, non-tender and non-distended Extremity normal to inspection Assessment & Plan Assessment/Plan (1) Screen for colon cancer: PLAN: I explained endoscopy in detail to the patient. I explained the risks including but not limited to stroke or heart attack with anesthesia, perforation of the GI tract, bleeding, infection. I explained that any of these could necessitate further emergency surgery. The patient understands and all questions were answered sufficiently. The patient wishes to proceed with procedure. Prosper Bacon MD Pager: [facility] [address] [place] [address], [address] [place] [address] Office: Surgery Risks - Colonoscopy Risks Include but are not Limited To: Risks include but are not limited to: Bleeding, perforation requiring further surgery, inability to complete colonoscopy requiring barium enema.
[2024-11-18] MEDS: Lactated Ringers 500 ML IV (08:51)
[2024-11-18] MEDS: Lidocaine 1% (5 ml sdv) 5 ML Vial IV (08:59)
[2024-11-18 09:15] VITALS: BP 104/66; BP 169/103; PULSE 80; RESP 16; TEMP 36.8; O2SAT 97
--- NOTE | 2024-11-18 09:15 | OP.COLON_ITS ---
Patient Name: Mili Chávez Procedure Date: 11/18/2024 8:48 AM Date of : 1980 Age: 44 Procedure: Colonoscopy Indications: Screening for colorectal malignant neoplasm Providers: Prosper Bacon MD Referring MD: Monica Chopra MD Medicines: Propofol per Anesthesia Patient Profile: This is a 44 year old female. Refer to note in patient chart for documentation of history and physical. Last Colonoscopy: none. The patient's first colonoscopy is today. Complications: No immediate complications. Procedure: Pre-Anesthesia Assessment: - Prior to the procedure, a History and Physical was performed, and patient medications and allergies were reviewed. The patient's tolerance of previous anesthesia was also reviewed. The risks and benefits of the procedure and the sedation options and risks were discussed with the patient. All questions were answered, and informed consent was obtained. Prior Anticoagulants: The patient has taken no anticoagulant or antiplatelet agents. After reviewing the risks and benefits, the patient was deemed in satisfactory condition to undergo the procedure. After I obtained informed consent, the scope was passed under direct vision. Throughout the procedure, the patient's blood pressure, pulse, and oxygen saturations were monitored continuously. The Colonoscope was introduced through the anus and advanced to the cecum, identified by appendiceal orifice and ileocecal valve. The colonoscopy was performed without difficulty. The patient tolerated the procedure well. The quality of the bowel preparation was good. The ileocecal valve, appendiceal orifice, and rectum were photographed. Scope In: 8:56:38 AM Scope Withdrawal Time 0 hours 6 minutes 13 seconds Scope Out: 9:09:44 AM Total Procedure Duration Time 0 hours 13 minutes 6 seconds Findings: The entire examined colon appeared normal. Impression: - The entire examined colon is normal. - No specimens collected. Recommendation: - Discharge patient to home. - Resume previous diet. - Continue present medications. - Repeat colonoscopy in 10 years for screening purposes. Procedure Code(s): --- Professional --- 12457, Colonoscopy, flexible; diagnostic, including collection of specimen(s) by brushing or washing, when performed (separate procedure) Diagnosis Code(s): --- Professional --- Z12.11, Encounter for screening for malignant neoplasm of colon CPT copyright 2021 [employer]. All rights reserved. The codes documented in this report are preliminary and upon change release manager review may be revised to meet current compliance requirements. Prosper Bacon MD 11/18/2024 9:14:26 AM This report has been signed electronically. Number of Addenda: 0 Note Initiated On: 11/18/2024 8:48 AM
--- NOTE | 2024-11-18 09:15 | OP.PROVAT_ITS ---
11/18/2024 Monica Chopra MD [address] [place] [address] [place] [address] Re : Colonoscopy procedure for Mili Chávez Dear Dr. Chopra This procedure was performed on Monday, November 18, 2024. My impressions and recommendations are as follows: Impressions : - The entire examined colon is normal. - No specimens collected. Recommendations : - Discharge patient to home. - Resume previous diet. - Continue present medications. - Repeat colonoscopy in 10 years for screening purposes. My findings are described in the full procedure note, which is enclosed. If I can be of further assistance, please feel free to contact me at Doctor phone number(s): , Work: . Sincerely, Prosper Bacon MD 11/18/2024 9:14:26 AM This report has been signed electronically.
[2024-11-18 09:20] VITALS: BP 104/66; BP 111/69; BP 169/103; PULSE 87; PULSE 89; RESP 16; RESP 18; TEMP 36.8; O2SAT 100; O2SAT 98
--- NOTE | 2024-11-18 09:20 | PCM.POST.ANE ---
Anesthesia: Postop Eval I Current Vital Signs Temperature: 98.2 F Pulse Rate: 89 Blood Pressure: 104/66 Respiratory Rate: 18 Pulse Ox: 100 Assessment Airway patent: Yes Spontaneous unlabored respirations: Yes nausea: No Vomiting: No Anesthesia Complication: No Fluid Hydration Crystalloid volume administer (ml): 500 Total IV fluid infused: 500 Progress Note Anesthesia document: Postop Eval 1 completed: Yes
[2024-11-18 09:25] VITALS: BP 112/77; BP 169/103; PULSE 76; RESP 14; TEMP 36; O2SAT 98
[2024-11-18 09:39] VITALS: BP 169/103
--- NOTE | 2024-11-18 10:25 | POSTOPAN2_ITS ---
Anesthesia Postop Eval I Sum Postop Eval Completion status Anesthesia document: Postop Eval 1 completed: Yes Anesthesia Postop Eval I Summary Anesthesia Postop Eval I Summary: Anesthesia Postop Eval I: Assessment Summary Airway patent Yes 11/18/24 09:20 [email or web address] Spontaneous unlabored Yes 11/18/24 09:20 [email or web address] [email or web address] respirations Mental status nausea No 11/18/24 09:20 [email or web address] [email or web address] Vomiting No 11/18/24 09:20 [email or web address] Anesthesia Postop Eval I: Fluid Summary Crystalloid volume administer 500 11/18/24 09:20 [email or web address] (ml) Colloids volume administered ( ml) Blood Product volume administered (ml) Total IV fluid infused 500 11/18/24 09:20 [email or web address] Anesthesia Postop Eval I: Summary Notes Anesthesia Complication No 11/18/24 09:20 [email or web address] Anesthesia Complication Comment: Post-operative progress note Anesthesia: Postop Eval II Evaluation Mental status: Awake and Calm Pain Level: 0 nausea: No Vomiting: No Progress Note Post-operative progress note: meets discharge criteria Complications Anesthesia Complication: No
--- NOTE | 2024-11-18 10:25 | PCM.POSTANE2 ---
Anesthesia Postop Eval I Sum Postop Eval Completion status Anesthesia document: Postop Eval 1 completed: Yes Anesthesia Postop Eval I Summary Anesthesia Postop Eval I Summary: Anesthesia Postop Eval I: Assessment Summary Airway patent Yes 11/18/24 09:20 [email or web address] Spontaneous unlabored Yes 11/18/24 09:20 [email or web address] [email or web address] respirations Mental status nausea No 11/18/24 09:20 [email or web address] [email or web address] Vomiting No 11/18/24 09:20 [email or web address] Anesthesia Postop Eval I: Fluid Summary Crystalloid volume administer 500 11/18/24 09:20 [email or web address] (ml) Colloids volume administered ( ml) Blood Product volume administered (ml) Total IV fluid infused 500 11/18/24 09:20 [email or web address] [email or web address] Anesthesia Postop Eval I: Summary Notes Anesthesia Complication No 11/18/24 09:20 [email or web address] [email or web address] Anesthesia Complication Comment: Post-operative progress note Anesthesia: Postop Eval II Evaluation Mental status: Awake and Calm Pain Level: 0 nausea: No Vomiting: No Progress Note Post-operative progress note: meets discharge criteria Complications Anesthesia Complication: No
== END 2024-11-18 09:42 | disposition home or self-care (01) ==
LOC: EN 08:05 → AC 08:06
PROVIDERS: PCP Internal Medicine; Referring Provider Internal Medicine; Visit Provider Surgery
PROC: 0DJD8ZZ Inspection of Lower Intestinal Tract, Via Natural or Artificial Opening Endoscopic (ICD-10-PCS; CPT 45378; principal; 2024-11-18 08:55)
DX: Z12.11 Encounter for screening for malignant neoplasm of colon (principal)
CPT/HCPCS: 45378